=== PATIENT | female | born 2000 | race Caucasian/White ===

== ENCOUNTER 2021-12-19 13:19 | Day surgery (SDC) | payer OTHER ==
[2021-12-15 10:30] VITALS: BMI 22.7
[2021-12-19] MEDS ORDERED: EPINEPHrine 1:1,000 1,000 MCG/ML ML ONE (14:08)
[2021-12-19] MEDS ORDERED: BUPIVACAINE HCL/PF 0.25% (2.5MG/ML) 10 ML VIAL ONE (14:22)
[2021-12-19] MEDS ORDERED: VANCOMYCIN 1,000 MG VIAL (RESTRICTED TO ID ONLY) ONE (14:22)
[2021-12-19] MEDS ORDERED: FENTANYL CITRATE/PF 50 MCG/ML VIAL ONE ×2 (14:58→18:12)
[2021-12-19] MEDS ORDERED: ACETAMINOPHEN INJECTION 100 ML IVPB ONE (14:58)
[2021-12-19] MEDS ORDERED: MIDAZOLAM HCL 2 MG/2 ML SINGLE DOSE VIAL ONE ×2 (15:07→17:11)
[2021-12-19] MEDS ORDERED: BUPIVACAINE HCL 50 ML ONE (15:07)
[2021-12-19] MEDS ORDERED: BUPIVACAINE LIPOSOME/PF (EXPAREL) 266 MG/20 ML VIAL ONE (15:07)
[2021-12-19] MEDS ORDERED: ONDANSETRON 4 MG/2 ML VIAL IVPUSH PRN (15:22)
[2021-12-19] MEDS ORDERED: oxyCODONE HCL 5 MG TABLET PO PRN (15:22)
[2021-12-19] MEDS ORDERED: PROPOFOL 20 ML ONE ×2 (15:26→15:29)
[2021-12-19] MEDS ORDERED: LACTATED RINGERS SOLUTION 1,000 ML IV SCH (15:30)
[2021-12-19] MEDS ORDERED: HYDROmorphone HCL/PF 1 MG/ML VIAL ONE (17:12)
[2021-12-19] MEDS ORDERED: ONDANSETRON 4 MG/2 ML VIAL ONE (18:13)
[2021-12-19 18:48] VITALS: RESP 16; TEMP 98.2
[2021-12-19 19:21] VITALS: BP 136/80; PULSE 95
== END 2021-12-19 19:20 | disposition home or self-care (01) ==
LOC: FASU 13:19
PROVIDERS: ATTEND Orthopaedic Surgery Sports Medicine
PROC: 0MRP47Z Replacement of Left Knee Bursa and Ligament with Autologous Tissue Substitute, Percutaneous Endoscopic Approach (ICD-10-PCS; principal; 2021-12-19 15:47)
DX: S83.512A Sprain of anterior cruciate ligament of left knee, initial encounter (principal); X58.XXXA Exposure to other specified factors, initial encounter; Y93.9 Activity, unspecified; Y92.9 Unspecified place or not applicable
CPT/HCPCS: 29888; C1713; 81025; 94760